=== PATIENT | female | born 1995 | race Caucasian/White ===

== ENCOUNTER 2022-07-25 08:36 | Emergency (ER) | payer OTHER ==
[~2022-07-25] VITALS: Ht 162.6 cm; Wt 65.0 kg
[2022-07-25] MEDS ORDERED: IBUPROFEN 800MG TABLET PO ONE (09:15)
[2022-07-25] MEDS ORDERED: CYCL10TA21 MT (11:14)
[2022-07-25] MEDS ORDERED: IBUP-2029 MT (11:14)
[2022-07-25 11:49] VITALS: BP 110/73
== END 2022-07-25 11:51 | disposition home or self-care (01) ==
LOC: ER 08:36
DX: S13.8XXA Sprain of joints and ligaments of other parts of neck, initial encounter (principal); S70.11XA Contusion of right thigh, initial encounter; V49.49XA Driver injured in collision with other motor vehicles in traffic accident, initial encounter; Y93.89 Activity, other specified; Y92.488 Other paved roadways as the place of occurrence of the external cause
CPT/HCPCS: 72040; 81025; 99283